=== PATIENT | female | born 1960 | race Caucasian/White ===

== ENCOUNTER 2017-07-31 11:27 | Inpatient (IN) | payer OTHER ==
[~2017-07-31] VITALS: Ht 152.4 cm; Wt 46.7 kg
[2017-07-31 11:36] VITALS: BP 126/71
--- NOTE | 2017-07-31 11:39 | NUR ---
Note undone in EDM - 07/31/17 at 1156 by [facility] PT. CAME IN VIA ALS DUE TO SUICIDAL IDEATION. PER REPORT " SHE WAS SITTING IN THE [employer] AND TOLD THE GLASSBLOWER THAT SHE WANTED TO KILL HERSELF , AND SHE WAS PLANNING TO DO IT BY RUNNING INTO TRAFFIC. THEY CALLED 911". PT. IS AAOX4, RR EVEN AND UNLABORED. PT. DENIES ANY N/V/D. PT. HAS 3/10 PAIN ON R ANKLE DUE TO " I HAD SURGERY ON THAT ANKLE SO ITS BEEN GOING ON FOR A WHILE". PT. STATES " I RAN OUT OF MY [place] A COUPLE OF DAYS AGO AND I FEEL LIKE HURTING MYSELF BY RUNNING INTO TRAFFIC". WHEN ASKING IF SHE WANTED TO HURT OTHERS SHE DENIED. PT. IS IN HOLD BY VIK SONI. HOLD PRECAUTIONS INITIATED, NO LOOSE CABLES OR SHARP OBJECTS PRESENT IN ROOM. WILL CONTINUE TO MONITOR. ER AWARE.
--- NOTE | 2017-07-31 11:39 | NUR ---
PT. CAME IN VIA ALS DUE TO SUICIDAL IDEATION. PER REPORT " SHE WAS SITTING IN THE [place] AND TOLD THE BOX OFFICE MANAGER THAT SHE WANTED TO KILL HERSELF , AND SHE WAS PLANNING TO DO IT BY RUNNING INTO TRAFFIC. THEY CALLED 911". PT. IS AAOX4, RR EVEN AND UNLABORED. PT. DENIES ANY N/V/D. PT. HAS 3/10 PAIN ON R ANKLE DUE TO " I HAD SURGERY ON THAT ANKLE SO ITS BEEN GOING ON FOR A WHILE". PT. STATES " I RAN OUT OF MY [place] A COUPLE OF DAYS AGO AND I FEEL LIKE HURTING MYSELF BY RUNNING INTO TRAFFIC". WHEN ASKING IF SHE WANTED TO HURT OTHERS SHE DENIED. PT. IS IN HOLD BY VIK SONI. HOLD PRECAUTIONS INITIATED, NO LOOSE CABLES OR SHARP OBJECTS PRESENT IN ROOM. WILL CONTINUE TO MONITOR. ER AWARE. PT. CLOSE TO NURSES STATION BED #5; CURTAIN OPEN, SITTER NIMESH AT BEDSIDE.
--- NOTE | 2017-07-31 11:40 | NUR ---
LAB AT BEDSIDE
--- NOTE | 2017-07-31 11:42 | NUR ---
SECURITY CAME TO BEDSIDE AND REMOVED BELONGINGS OF THE PATIENT
[2017-07-31 11:51] LABS: BASOPHILS % (AUTO) 0.3 % (0.0-2.0); EOSINOPHILS % (AUTO) 0.1 % (0.0-4.0); HEMATOCRIT 30.1 % (36-48); HEMOGLOBIN 9.8 g/dL (12.0-16.0); LYMPHOCYTES # (AUTO) 1.1 K/uL (2.5-16.5); MEAN CORPUSCULAR HEMOGLOBIN 29 pg (27-31); MEAN CORPUSCULAR HGB CONC 33 g/dL (33-37); MONOCYTES # (AUTO) 0.3 K/uL (0.8-1.0); MONOCYTES % (AUTO) 3.1 % (1.7-9.3); NEUTROPHILS # (AUTO) 8.2 K/uL (1.8-7.7); NEUTROPHILS % (AUTO) 85.5 % (42.2-75.2); PLATELET COUNT (AUTO) 327 K/uL (140-450); RED BLOOD CELL COUNT(AUTO) 3.39 MIL/uL (4.20-5.40); RED CELL DISTRIBUTION WIDTH 16.7 % (11.6-13.7); WHITE BLOOD COUNT (AUTO) 9.6 K/uL (4.8-10.8)
--- NOTE | 2017-07-31 11:54 | NUR ---
PT. UNABLE TO PROVIDE URINE AT THIS TIME, PROVIDED A CUP OF WATER. YANDEL HURTADO AWARE.
[2017-07-31 12:06] LABS: ALBUMIN 3.1 g/dL (3.4-5.0); ANION GAP 11.4 (8-16); ASPARTATE AMINOTRANSFERASE 12 U/L (15-37); CARBON DIOXIDE 30.5 mmol/L (21-32); CHLORIDE 99 mmol/L (98-107); CREATININE 1.1 mg/dL (0.6-1.3); GFR ARICAN-AMERICAN 65 mL/min (>90); GLUCOSE 202 mg/dL (74-106); POTASSIUM 3.9 mmol/L (3.5-5.1); SODIUM SERUM 137 mmol/L (136-145); TOTAL BILIRUBIN 0.3 mg/dL (0.0-1.0); UREA NITROGEN, BLOOD 14 mg/dL (7-18)
[2017-07-31 12:17] LABS: ACETAMINOPHEN < 0.5 ug/ml (10-30); SALICYLATE < 2.8 mg/dL (2.8-20.0)
[2017-07-31 12:30] LABS: BILIRUBIN,URINE NEGATIVE (NEGATIVE); BLOOD, URINE NEGATIVE (NEGATIVE); LEUKOCYTE ESTERASE ,URINE 3+ (NEGATIVE); NITRITE, URINE POSITIVE (NEGATIVE); PH,URINE 6.5 (5.0-9.0); UGLUCOSE NEGATIVE (NEGATIVE)
[2017-07-31 12:39] LABS: BARBITURATE, URINE NEG. ng/ml (NEG <=200); BENZODIAZEPINE, URINE NEG. ng/mL (NEG <=200); CANNABINOID, URINE NEG. ng/mL (NEG <=50); COCAINE, URINE NEG. ng/mL (NEG <=300); OPIATE, URINE NEG. ng/mL (NEG <=2000); PHENCYCLIDINE SCREEN,URINE NEG. ng/mL (NEG <=25)
[2017-07-31 12:42] LABS: APPEARANCE,URINE HAZY (CLEAR); COLOR,URINE YELLOW (YELLOW)
[2017-07-31 12:43] LABS: RBC,URINE NONE SEEN /HPF (0-5); WBC,URINE 20-60 /HPF (0-5)
--- NOTE | 2017-07-31 12:47 | NUR ---
PT. IN BED RESTING COMFORTABLY , BED IN LOWEST POSITION, SITTER AT BEDSIDE. WILL CONTINUE TO MONITOR.
--- NOTE | 2017-07-31 12:48 | NUR ---
MEDICALLY CLEARED PER DR. ALFORD.
[2017-07-31] MEDS ORDERED: cefTRIAXone 1,000 MG in LIDOCAINE MPF 1% - **ER/OR** 2.1 ML IM ONE (12:50)
--- NOTE | 2017-07-31 13:50 | NUR ---
PT. IN BED RESTING COMFORTABLY, RR EVEN AND UNLABORED, BED IN LOWEST POSITION. SITTER AT BEDSIDE, WILL CONTINUE TO MONITOR.
--- NOTE | 2017-07-31 14:48 | NUR ---
Called [facility] and spoke with Frida. No beds. Called [facility] and spoke with Lillian. No beds. Called [facility] and spoke with Elisha Emanuel. Called [facility] and spoke with Jana. Packet faxed for review. Called [facility] and spoke with Che. Packet faxed for review. Called [facility] and spoke with Sary. Facility at capacity.
--- NOTE | 2017-07-31 15:18 | NUR ---
Pt. in room , being ambulated to commode, steady gait, rr even and unlabored.
[2017-07-31] MEDS ORDERED: ACETAMINOPHEN 325 MG TAB PO PRN (16:20)
--- NOTE | 2017-07-31 16:23 | NUR ---
Patient will be admitted to care of DR. WYNN . Admited to MED SURG . Will go to room 124A. Belongings list completed. Report to ARIANA ARCEO .
--- NOTE | 2017-07-31 16:23 | NUR ---
PATIENT ARRIVED FROM ER VIA WHEELCHAIR AND ABLE TO AMBULATE FROM WHEELCHAIR TO [facility] BED WITH STEADY GAIT. NO DISTRESS NOTED. RESPIRATIONS EVEN, UNLABORED, ON ROOM AIR. AAOX4, CALM, COOPERATIVE, SKIN COLOR APPROPRIATE TO ETHNICITY, WARM TO TOUCH. SKIN IS INTACT. ABDOMEN SOFT, NON-DISTENDED. LUNGS CTA ON ALL LOBES. NO IV SITE IN PLACE. REVIEWED PLAN OF CARE WITH PATIENT. PATIENT VERBALIZED UNDERSTANDING. SAFETY MEASURES IN PLACE, SEIZURE PRECAUTIONS IN PLACE, 1:1 SITTER AT BEDSIDE. WILL CONTINUE TO MONITOR.
[2017-07-31 16:25] VITALS: BP 104/55
[2017-07-31] MEDS: DIVALPROEX 250 MG TABEC PO SCH (17:58)
--- NOTE | 2017-07-31 18:00 | NUR ---
PATIENT SITTING IN BED WITH DINNER TRAY IN FRONT. NO DISTRESS NOTED. DENIES ANY PAIN. SCHEDULED MEDICATIONS DUE GIVEN. SAFETY MEASURES IN PLACE, 1:1 SITTER AT BEDSIDE. WILL CONTINUE TO MONITOR
--- NOTE | 2017-07-31 19:30 | NUR ---
GAVE REPORT TO SOCIAL WORK COORDINATOR NURSE FOR CONTINUITY OF CARE. PATIENT IN STABLE CONDITION.
--- NOTE | 2017-07-31 19:31 | NUR ---
RECEIVED REPORT FROM DAYSSCFT NURSE AT BEDSIDE FOR CONTINUITY OF CARE. PT AAOX3. PT IS ON 5150 HOLD. NO IV LINE NOTED. BED LOWERED CALL LIGHT WITHIN REACH WILL CONTINUE TO MONITOR.
[2017-07-31 20:00] VITALS: BP 99/52
--- NOTE | 2017-08-01 01:27 | NUR ---
PT IS SLEEPING NO SOB NO S/S OF DISTRESS WILL CONTINUE TO MONITOR.
--- NOTE | 2017-08-01 02:09 | NUR ---
D[facility] CALLED TO LET ME KNOW THERE IS NO BED AVAILABLE AT THIS TIME. HE WILL CONTINUE TO SEARCH FOR PLACEMENT.
--- NOTE | 2017-08-01 07:30 | NUR ---
GAVE REPORT TO DAYSHIFT NURSE FOR CONTINUITY OF CARE.
--- NOTE | 2017-08-01 07:31 | NUR ---
REPORT RECEIVED FROM LITHOGRAPH OPERATOR, PT SLEEPING QUIETLY IN NAD, RESP EVEN UNLABORED, SKIN WARM DRY COLOR WNL, PT AROUSES EASILY, DENIES PAIN OR DISCOMFORT, DENIES ANY IMMEDIATE NEEDS, PLAN OF CARE REVIEWED, ALL SAFETY MEASURES IN PLACE, 1:1 SITTER AT BEDSIDE, WILL CONTINUE TO MONITOR.
[2017-08-01 08:00] VITALS: BP 107/48
--- NOTE | 2017-08-01 08:34 | NUR ---
PATIENT HAS BEEN SCREENED AND CATEGORIZED LOW NUTRITION RISK. PATIENT WILL BE SEEN WITHIN 7 DAYS OF ADMISSION. 08/07/[address]
[2017-08-01] MEDS: DIVALPROEX 250 MG TABEC PO SCH ×3 (08:53→16:50)
--- NOTE | 2017-08-01 08:55 | NUR ---
AM MEDS GIVEN, PT MYRTLE PILL WELL, DENIES PAIN OR DISCOMFORT, DENIES ANY IMMEDIATE NEEDS, PT WENT BACK SLEEP IMMEDIATELY, PT REMAINS ON 1;1 WATCH. WILL CONTINUE TO MONITOR.
[2017-08-01] MEDS ORDERED: LEVOFLOXACIN 500 MG TAB PO SCH (11:00)
--- NOTE | 2017-08-01 11:53 | NUR ---
PT SLEEPING QUIETLY IN NAD, RESP EVEN UNLABORED, SKIN WARM DRY, SCHEDULED LEVAQUIN GIVEN, MYRTLE WELL, PT REMAINS ON 1:1 WATCH
--- NOTE | 2017-08-01 13:34 | NUR ---
Clinical review faxed to Lou at [facility] at [phone]
--- NOTE | 2017-08-01 15:24 | NUR ---
[facility] HAS RECEIVED COPY OF NEW HOLD DATED 07/31/17. PLACEMENT PACKETS HAVE BEEN SENT TO [facility], [facility], AND [facility].
[2017-08-01 16:00] VITALS: BP 94/52
--- NOTE | 2017-08-01 16:05 | NUR ---
PT SITTING UP EATING SNACKS, DENIES PAIN OR DISCOMFORT, DENIES ANY IMMEDIATE NEEDS, VITALS STABLE, 1:1 SITTER AT BEDSIDE, WILL CONTINUE TO MONTIOR.
--- NOTE | 2017-08-01 19:27 | NUR ---
REPORT GIVEN TO JOB HAND NURSE, PT IN STABLE CONDITION.
--- NOTE | 2017-08-01 19:28 | NUR ---
RECD. RESTING IN BED, SLEEPING COMFORTABLY BUT EASILY AROUSABLE. RESPIRATION EVEN AND UNLABORED. NO IV LINE. ON 1:1 SITTER. NO APPEARANCE OF PAIN NOTED, 0/10. NO AGITATION. WILL CONTINUE TO MONITOR BEHAVIOR AND ENSURE SAFETY DURING SHIFT.
--- NOTE | 2017-08-01 22:00 | NUR ---
AWAKE IN BED, A/OX4. ADMITTED SHE HAS STILL INTENTION OF ENDING HIS LIFE.
--- NOTE | 2017-08-01 22:30 | NUR ---
REFUSED IV INSERTION.
[2017-08-02] VITALS: BP 94/50
--- NOTE | 2017-08-02 | NUR ---
SLEEPING COMFORTABLY IN BED.
--- NOTE | 2017-08-02 01:00 | NUR ---
Patient's Plan of Care was discussed and reviewed with SCOURING TRAIN OPERATOR CHIEF: GER BAUTISTA
--- NOTE | 2017-08-02 04:00 | NUR ---
STILL SLEEPING COMFORTABLY. 1:1 SITTER NEAR DOOR MONITORING PATIENT.
--- NOTE | 2017-08-02 05:59 | NUR ---
Still no beds available at this time. Will follow up.
--- NOTE | 2017-08-02 06:37 | NUR ---
ABLE TO SLEEP WELL. CONDITION REMAIN STABLE. SAFETY MAINTAINED DURING SHIFT.
--- NOTE | 2017-08-02 07:20 | NUR ---
ENDORSED TO AM NURSE FOR CONTINUITY OF CARE.
--- NOTE | 2017-08-02 07:22 | NUR ---
REPORT RECEIVED FROM MACHINE TRIMMER, PT AWAKE ALERT RESP EVEN UNLABORED ON ROOM AIR, SKIN WARM DRY COLOR WNL, PLAN OF CARE REVIEWED, PT DENIES PAIN OR DISCOMFORT, DENIES ANY IMMEDIATE NEEDS, ALL SAFETY MEASURES IN PLACE, 1:1 WATCH AT BEDSIDE, WILL CONTINUE TO MONITOR.
[2017-08-02 08:00] VITALS: BP 93/40
[2017-08-02] MEDS: DIVALPROEX 250 MG TABEC PO SCH ×3 (08:12→17:35)
[2017-08-02] MEDS: LEVOFLOXACIN 500 MG TAB PO SCH (08:13)
--- NOTE | 2017-08-02 11:13 | NUR ---
PT AMBULATES WITH STEADY GAIT, DENIES PAIN OR DISCOMFORT, PT MOVED TO 109B AT THIS TIME.
--- NOTE | 2017-08-02 12:37 | NUR ---
Followed up with all faxed facilities. No beds available.
--- NOTE | 2017-08-02 12:55 | NUR ---
FAXED CONCURRENT REVIEW TO [facility] [phone] PHONE KWAN [phone]
--- NOTE | 2017-08-02 13:00 | NUR ---
Lamp Cleaner Notes: I attempted to meet with Patient to discuss, confirm and asses patient for needed services upon discharge. Patient was sleepy and stated " I will not talk to anyone only if my boyfriend comes here" turned around and fall asleep again. These telegraphic typewriter installer ended attempt to screen.
[2017-08-02 16:00] VITALS: BP 100/49
--- NOTE | 2017-08-02 16:50 | NUR ---
DR WYNN CALLED TO INFORM THAT PT CAN REMAIN ON LEVAQUIN BECAUSE ECOLI(ESBL) IS SENSITIVE TO LEVAQUIN.
--- NOTE | 2017-08-02 17:35 | NUR ---
1700 MED GIVEN, PT MYRTLE WELL, PT RESTING QUIETLY IN NAD, RESP EVEN UNLABORED, SKIN WARM DRY COLOR WNL, PT DENIES ANY IMMEDIATE NEEDS, WILL CONINUE TO DANYELLE PT ON 1:1 WATCH AT BEDSIDE.
--- NOTE | 2017-08-02 19:30 | NUR ---
REPORT GIVEN TO GUARD MANAGER NURSE, PT IN STABLE CONDITION.
--- NOTE | 2017-08-02 19:35 | NUR ---
RECEIVED PT IN STABLE CONDITION FROM AM NURSE. PT IS AWAKE,ALERT AND ORIENTED. ON MED SURG. WITH NO C/O OF ANY DISCOMFORT NOR PAIN NOTED. NO IV ACCESS. WITH 1;1 SITTER . AMBULATORY TO BATHROOM. STILL AWAITING FOR PSYCHIATRIC FACILITY. BED ON LOW POSITION. WILL CONTINUE TO MONITOR .
--- NOTE | 2017-08-02 21:30 | NUR ---
PT ASLEEP. NO S/S OF ANY DISCOMFORT NOTED.
[2017-08-02 23:57] VITALS: BP 99/45
--- NOTE | 2017-08-03 00:05 | NUR ---
VITAL SIGNS TAKEN. STABLE. WITH NO C/O ANY DISCOMFORT NOTED.
--- NOTE | 2017-08-03 03:30 | NUR ---
MADE ROUNDS. PT IS ASLEEP. NO S/S OF ANY DISCOMFORT NOTED. STILL ON 1;1 SITTER .
--- NOTE | 2017-08-03 06:00 | NUR ---
PT SLEPT WELL DURING THE NIGHT. NO S/S OF ANY SUICIDAL INTEND AT THIS TIME.
--- NOTE | 2017-08-03 07:20 | NUR ---
ENDORSED PT IN STABLE CONDITION TO AM NURSE FOR CONTINUITY OF CARE.
--- NOTE | 2017-08-03 07:25 | NUR ---
RECEIVED PT FROM SQUEAK RATTLE AND LEAK REPAIRER NURSE, CHRISTIANO, PT IS ASLEEP AND LYING ON THE BED AND SITTER ON THE BEDSIDE, AND SAFETY PRECAUTION ENFORCE. RESPIRATIONS EVEN AND NO SIGN OF DISTRESS NOTED. WILL CONTINUE TO MONITOR.
--- NOTE | 2017-08-03 07:26 | NUR ---
Report received from framing and hanging. will continue to look for placement throughout shift. will update unit once new info has been received.
--- NOTE | 2017-08-03 07:55 | NUR ---
PT IS AWAKE AND SEATED ON THE BED, EATING HER BREAKFAST, VITAL SIGNS TAKEN AND IS STABLE. NO SIGN OF DISTRESS NOTED ON THE PT. 1: 1 AT THE BEDSIDE. WILL CONTINUE TO MONITOR.
[2017-08-03 08:00] VITALS: BP 103/49
[2017-08-03] MEDS: DIVALPROEX 250 MG TABEC PO SCH ×3 (09:00→17:04)
--- NOTE | 2017-08-03 10:37 | NUR ---
FAXED CONCURRENT REVIEW TO [facility] [phone] PHONE KWAN [phone].
--- NOTE | 2017-08-03 12:00 | NUR ---
INFORMED PHARMACY OF A MISSED DOSE. PHARMACY AWARE.
--- NOTE | 2017-08-03 12:15 | NUR ---
PT IS AWAKE AND EATING HER LUNCH, WITH SITTER ON THE BEDSIDE. SCHEDULED MEDICATION GIVEN AND PT TOLERATED IT. NO SIGN OF DISTRESS NOTED. WILL MONITOR.
[2017-08-03] MEDS: LEVOFLOXACIN 500 MG TAB PO SCH (12:22)
--- NOTE | 2017-08-03 13:30 | NUR ---
[facility] CALLED AND INFORMING THAT THE 5150 OF THE PT . ACKNOWLEDGED.
--- NOTE | 2017-08-03 13:38 | NUR ---
[facility] spoke to the RN taking care of patient and we are aware patients 5150 has today. waiting for callback for next course of action for patient.
[2017-08-03 16:00] VITALS: BP 103/50
--- NOTE | 2017-08-03 18:30 | NUR ---
DR. DIAZ SAW AND ASSESSED THE PT. PT STILL MEETS 5150 CRITERIA. WAITING FOR PLACEMENT FOR A PSYCH FACILITY.
--- NOTE | 2017-08-03 19:40 | NUR ---
ENDORSED PT TO CROSS CUT SAW OPERATOR NURSE, GER, PT IS AWAKE AND IS STABLE AT THIS TIME.
--- NOTE | 2017-08-03 19:45 | NUR ---
RECD. RESTING IN BED, AWAKE, A/OX4. RESPIRATION EVEN AND UNLABORED. NO IV LINE, DOES NOT WANT IV INSERTION. STATED SHE IS WAITING FOR HER 37 YEARS OLD BOYFRIEND TO COME AND TAKE HER HOME, ADMITTED SHE IS HOMELESS BUT SHE HAVE A CAR. PLAN OF CARE FOR THE SHIFT DISCUSSED. VERBALIZED UNDERSTANDING. DENIES PAIN 0/10. DR. PEPE IS HERE TO EVALUATE PATIENT. WILL WAIT FOR HIS RECOMMENDATION.
--- NOTE | 2017-08-03 19:46 | NUR ---
Patient's Plan of Care was discussed and reviewed with ELINOR: GER
--- NOTE | 2017-08-03 19:50 | NUR ---
PATIENT STILL MEETS CRITERIA FOR 5150, WILL CONTINUE TO MONITOR PATIENT BEING THE NURSE, 1:1 SITTER FOR THE SHIFT.
--- NOTE | 2017-08-03 20:30 | NUR ---
ENCOURAGED TO DRINK MORE WATER, EXPLAINED IMPORTANT FOR HER URINARY TRACT INFECTION. JUST NODS HEAD.
--- NOTE | 2017-08-03 21:00 | NUR ---
AMBULATED TO TO VOID, BACK TO BED AFTER VOIDING.
--- NOTE | 2017-08-03 22:00 | NUR ---
SLEEPING COMFORTABLY IN BED.
--- NOTE | 2017-08-03 22:40 | NUR ---
WOKE UP DUE TO COUGHING. WENT BACK TO SLEEP AFTER DRINKING WATER.
--- NOTE | 2017-08-03 23:45 | NUR ---
AMBULATED TO BR. HAD BM. BACK TO BED.
[2017-08-04] VITALS: BP 97/46
--- NOTE | 2017-08-04 00:15 | NUR ---
WENT BACK TO SLEEP.
--- NOTE | 2017-08-04 02:15 | NUR ---
SLEEPING COMFORTABLY IN BED.
--- NOTE | 2017-08-04 06:00 | NUR ---
STILL SLEEPING, CONDITION REMAIN STABLE. WILL ENDORSE TO AM NURSE FOR CONTINUITY OF CARE.
--- NOTE | 2017-08-04 07:13 | NUR ---
RECEIVED BEDSIDE REPORT FROM TRANSACTIONAL ATTORNEY NURSE. PATIENT IS AWAKE, ALERT AND ORIENTEDX4. NO SIGNS OF DISTRESS ON ROOM AIR. PATIENT ON CONTACT PRECAUTIONS D/T POSITIVE E. COLI IN URINE. PATIENT HAS SEIZURE PRECAUTIONS IN PLACE. SHE STATES THAT AFTER BREAKFAST SHE WANTS TO TALK TO HER BOYFRIEND. SHE TALKED TO HER BOYFRIEND YESTERDAY AND SHE SAID HE IS SUPPOSE TO VISIT IF HE FINDS A RIDE. HER BOYFRIEND IS ALSO HOMELESS. PER TRANSACTIONAL ATTORNEY IF HER BOYFRIEND DOES NOT COME SHE WILL KILL HERSELF. BED IN LOW POSITION. WILL CONTINUE TO MONITOR PATIENT, 1:1 SITTER.
[2017-08-04 08:00] VITALS: BP 102/49
--- NOTE | 2017-08-04 08:06 | NUR ---
[facility] morning shift received report will continue to look for placement throughout shift.
[2017-08-04] MEDS: LEVOFLOXACIN 500 MG TAB PO SCH (09:01)
[2017-08-04] MEDS: DIVALPROEX 250 MG TABEC PO SCH ×3 (09:01→17:13)
--- NOTE | 2017-08-04 09:04 | NUR ---
ADMINISTERED MEDS. PATIENT TOLERATED WELL. NO COMPLAINTS AT THIS TIME. LOWERED HEAD OF BED FOR COMFORT. BED IN LOW POSITION. 1:1 SITTER AT BEDSIDE, WILL CONTINUE TO MONITOR THE PATIENT.
--- NOTE | 2017-08-04 10:30 | NUR ---
PATIENT IS SLEEPING. NO SIGNS OF DISTRESS ON ROOM AIR. BED IN LOW POSITION. WILL CONTINUE TO MONITOR THE PATIENT. 1:1 SITTER
--- NOTE | 2017-08-04 12:24 | NUR ---
PUT HEAD OF BED UP SO PATIENT CAN EAT AT A COMFORTABLE POSITION. PATIENT IS EATING. NO SIGNS OF DISTRESS. BED IN LOW POSITION. WILL CONTINUE TO MONITOR THE PATIENT. 1:1 SITTER
--- NOTE | 2017-08-04 13:48 | NUR ---
ADMINISTERED MED. PATIENT TOLERATED WELL. WILL CONTINUE TO MONITOR THE PATIENT. 1:1 SITTER
--- NOTE | 2017-08-04 13:54 | NUR ---
No bed vacancies at [facility], [facility], [facility], [facility], [facility], [facility], [facility], [facility], [facility], and [facility].
--- NOTE | 2017-08-04 14:45 | NUR ---
PATIENT ATTEMPTED TO CALL HER BOYFRIEND. SOMEONE ANSWERED AND TOLD HER SHE IS CALLING THE WRONG NUMBER. PATIENT WAS A BIT UPSET. SHE CALLED AGAIN AND LEFT A MESSAGE TO HER BOYFRIEND TO COME PICK HER UP. PATIENT IN BED SITTING QUIETLY. NO OTHER COMPLAINTS AT THIS TIME. BED IN LOW POSITION. 1:1 SITTER. WILL CONTINUE TO MONITOR THE PATIENT.
--- NOTE | 2017-08-04 15:34 | NUR ---
PATIENT IS EATING AN APPLE WITH A SPOON. NO COMPLAINTS AT THIS TIME. PATIENT IS COOPERATIVE AND ALERT. WILL CONTINUE TO MONITOR THE PATIENT. 1:1 SITTER.
--- NOTE | 2017-08-04 15:50 | NUR ---
PATIENT ATTEMPTED TO CALL BOYFRIEND AGAIN. NO ANSWER. SHE WANTS TO TRY AGAIN LATER BEFORE DINNER. SHE STATES SEEING HER BOYFRIEND WILL MAKE HER FEEL BETTER. WILL CONTINUE TO MONITOR THE PATIENT. 1:1 SITTER
[2017-08-04 16:00] VITALS: BP 116/58
--- NOTE | 2017-08-04 17:13 | NUR ---
ADMINISTERED MEDS. PATIENT TOLERATED WELL. BED IN LOW POSITION. 1:1 SITTER. WILL CONTINUE TO MONITOR
--- NOTE | 2017-08-04 18:24 | NUR ---
PATIENT IS EATING. NO SIGNS OF DISTRESS ON ROOM AIR. BED IN LOW POSITION. 1:1 SITTER. WILL CONTINUE TO MONITOR THE PATIENT.
--- NOTE | 2017-08-04 18:31 | NUR ---
PATIENT TRIED CALLING BOYFRIEND AGAIN. NO ANSWER. SHE LEFT A MESSAGE FOR HIM TO COME PICK HER UP
--- NOTE | 2017-08-04 19:02 | NUR ---
GAVE BEDSIDE REPORT TO FAMILY AND CONSUMER SCIENCE PROFESSOR NURSE. PATIENT IS IN STABLE CONDITION. 1:1 SITTER AVAILABLE
--- NOTE | 2017-08-04 19:03 | NUR ---
RECEIVED BEDSIDE REPORT FROM DAY SHIFT NURSE BERNARDO RN, PT STABLE, NO DISTRESS NOTED, PT HAS NO IV ACCESS, REFUSED IV INSERTION, PT ON ROOM AIR, NO SOB, 1:1 SITTER AT BEDSIDE, INITIAL ASSESSMENT DONE, ALL SAFETY PRECAUTION MET, WILL CONTINUE TO MONITOR.
--- NOTE | 2017-08-04 21:00 | NUR ---
CHECKED ON PT, PT RESTING IN BED, NO DISTRESS NOTED, CALL LIGHT WITHIN REACH, WILL CONTINUE TO MONITOR.
--- NOTE | 2017-08-04 23:15 | NUR ---
CHECKED ON PT, PT SLEEPING, NO DISTRESS NOTED, V/S TAKEN, WNL, 1:1 SITTER AT BEDSIDE, WILL CONTINUE TO MONITOR.
[2017-08-05] VITALS: BP 108/48
--- NOTE | 2017-08-05 01:00 | NUR ---
ENDORSED PT TO NURSE ABHI LANE, FOR CONTINUOUS OF CARE, PT SLEEPING, 1:1 SITTER AT BEDSIDE, NO DISTRESS NOTED.WILL CONTINUE TO MONITOR.
--- NOTE | 2017-08-05 07:10 | NUR ---
CHANGE OF SHIFT REPORT GIVEN TO MARIA ANTONIA DAY SHIFT NURSE AT BEDSIDE PT IN STABLE CONDITION.
--- NOTE | 2017-08-05 07:11 | NUR ---
RECEIVED BEDSIDE REPORT FROM PROGRESSIVE CARE NURSE NURSE. PATIENT IS AWAKE. ALERT AND ORIENTEDX4. NO SIGNS OF DISTRESS ON ROOM AIR. ROOM CHECKED AND CLEARED, ROOM IS CLEARED FROM HARMFUL ENVIRONMENT. 1:1 SITTER AT BEDSIDE. PATIENT STATES SHE WANTS TO TRY AND CALL HER BOYFRIEND AGAIN. BOYFRIEND DID NOT ANSWER. SHE LEFT A VOICEMAIL. SEIZURE PRECAUTIONS IN PLACE. CONTACT PRECAUTIONS FOR E.COLI IN URINE. WILL CONTINUE TO MONITOR THE PATIENT.
[2017-08-05 08:00] VITALS: BP 100/47
[2017-08-05] MEDS: DIVALPROEX 250 MG TABEC PO SCH ×3 (09:30→16:52)
[2017-08-05] MEDS: LEVOFLOXACIN 500 MG TAB PO SCH (09:30)
--- NOTE | 2017-08-05 09:31 | NUR ---
ADMINISTERED MEDS. PATIENT TOLERATED WELL. WILL CONTINUE TO MONITOR THE PATIENT. 1:1 SITTER AT BEDSIDE.
--- NOTE | 2017-08-05 11:13 | NUR ---
PATIENT HAS NO SIGNS OF DISTRESS. EXPLAINED THE NEED FOR A URINE SAMPLE. SHE VERBALIZED UNDERSTANDING. 1:1 SITTER WILL LET ME KNOW WHEN PATIENT LEAVES ME URINE. WILL CONTINUE TO MONITOR
--- NOTE | 2017-08-05 13:03 | NUR ---
ADMINISTERED MEDS. PATIENT TOLERATED WELL. WILL CONTINUE TO MONITOR THE PATIENT. 1:1 SITTER AT BEDSIDE,.
[2017-08-05 13:53] LABS: APPEARANCE,URINE CLEAR (CLEAR); BILIRUBIN,URINE NEGATIVE (NEGATIVE); BLOOD, URINE NEGATIVE (NEGATIVE); LEUKOCYTE ESTERASE ,URINE NEGATIVE (NEGATIVE); NITRITE, URINE NEGATIVE (NEGATIVE); UGLUCOSE NEGATIVE (NEGATIVE)
[2017-08-05 14:05] LABS: COLOR,URINE STRAW (YELLOW)
--- NOTE | 2017-08-05 15:48 | NUR ---
PATIENT SITTING IN BED EATING ICE CHIPS. NO COMPLAINTS AT THIS TIME. NO SIGNS OF DISTRESS. WILL CONTINUE TO MONITOR THE PATIENT. BED IN LOW POSITION. 1:1 SITTER AT BEDSIDE.
[2017-08-05 16:00] VITALS: BP 110/50
--- NOTE | 2017-08-05 16:54 | NUR ---
ADMINISTERED MEDS. PATIENT TOLERATED WELL. BED IN LOW POSITION. 1:1 SITTER AT BEDSIDE. WILL CONTINUE TO MONITOR THE PATIENT.
--- NOTE | 2017-08-05 19:20 | NUR ---
RECEIVED REPORT FROM MARIA ANTONIA LANE DAY SHIFT NURSE AT BEDSIDE , PT IN STABLE CONDITION. PT LYING IN LOW BED AOX 4 WITH SIDE RAILS UP X 2 AND CALL LIANG IN REACH. PT HAD NO C/O VOICED AT THIS TIME.
--- NOTE | 2017-08-05 19:20 | NUR ---
GAVE BEDSIDE REPORT TO COURT INTERPRETER NURSE. PATIENT IS IN STABLE CONDITION.
--- NOTE | 2017-08-05 19:45 | NUR ---
PT SITTING UP IN BED WITH ICE CHIPS AND JUICE. V/S TAKEN AND ARE FOLLOWS :T 97.8 P 63 R 20 B/P 112/51 02 99 WITH R/A NO S/S OF PAIN OR DISTRESS NOTED.
--- NOTE | 2017-08-05 21:15 | NUR ---
PT BOYFRIEND, RAI CALLED REGARDING PT CONDITION AND WANTED HER TO BE RELEASED TO HIM. PRIMARY NURSE INFORMED PT BOYFRIEND THAT A DOCTOR'S ORDER NEEDS TO BE OBTAINED IN ORDER FOR HER TO BE DISCHARGED. PT BOYFRIEND RAI VERBALIZED UNDERSTANDING. RAI SAID THAT HE WAS VERY CLOSE TO FACILITY AND ASKED FOR DIRECTIONS.
--- NOTE | 2017-08-05 21:45 | NUR ---
FRONT LOBBY CALLED REGARDING RAI WHO APPARENTLY CAME TO VISIT RESIDENT BY BICYCLE AND WANTED TO SEE PT. RAI VISITED PT IN HER ROOM FOR 1/2 HOUR AND WAS INFORMED THAT THE PSYCH DOCTOR, NOT PRIMARY DOCTOR, WAS THE ONE TO RELEASE PT FROM 5150 HOLD. RAI AND PT INFORMED THAT [facility] DOCTOR WILL BE HERE TOMORROW TO DECIDE IF PT SHOULD REMAIN ON 5150 HOLD. BOTH PT AND RAI THE VISITING BOYFRIEND VERBALIZED UNDERSTANDING. SECURITY WAS HERE TO ESCORT RAI OUTSIDE WHO LEFT WITHOUT AN ISSUE.
--- NOTE | 2017-08-05 22:30 | NUR ---
PT ASLEEP IN BED NO S/S OF DISTRESS NOTED. SITTER AT BEDSIDE. BED LOW AND CALL LIANG IN REACH.
[2017-08-06] VITALS: BP 98/42
--- NOTE | 2017-08-06 02:58 | NUR ---
[facility] IS AWARE OF PATIENT. WE WILL CONTINUE TO SEARCH FOR PLACEMENT. THERE ARE CURRENTLY NO BEDS AVAILABLE AT THIS TIME.
--- NOTE | 2017-08-06 03:21 | NUR ---
PT AWAKE WENT TO REST ROOM AND REQUESTED SNACK OF JUICE AND PUDDING, WHICH WAS GRANTED
--- NOTE | 2017-08-06 07:10 | NUR ---
transfer of care report given at bedside to ARIANA Hernandez dayshift nurse pt in stable condition
--- NOTE | 2017-08-06 07:30 | NUR ---
PATIENT WAS SLEEPING COMFORTABLY, EASILY AROUSABLE BY NAME. RESPIRATION EVEN, UNLABOR ON ROOM AIR. SKIN DRY AND WARM. LUNGS SOUND CLEAR THROUGHOUT. BOWEL SOUND ACTIVE. REGULAR CARDIAC RHYTHM. DENIED SUICIDAL IDEATION, AND HALLUCINATION. NO DISTRESS NOTED AT THIS TIME. PLAN OF CARE WAS DISCUSSED WITH PATIENT. SAFETY MEASURE IS APPLIED WITH 1:1 SITTER.
[2017-08-06 08:00] VITALS: BP 99/49
[2017-08-06] MEDS: DIVALPROEX 250 MG TABEC PO SCH ×3 (08:54→16:07)
--- NOTE | 2017-08-06 10:47 | NUR ---
Called [facility] and spoke with Thiago. No beds. Called [facility] and spoke Domi. No beds. Called [facility] and spoke with Singh GAVIN. No beds. Called [facility] and spoke with Di. No beds, possible discharges later today. Called [facility] and spoke with Lissa. No beds. Called [facility] and spoke with Che. No beds. Called [facility] and spoke with Sary. No beds.
--- NOTE | 2017-08-06 10:55 | NUR ---
PATIENT IS AWAKE, ALERT. RESPIRATION EVEN, UNLABOR ON ROOM AIR. NO DISTRESS NOTED AT THIS TIME. FAMILY AT BEDSIDE. 1:1 SITTER ENSURED
--- NOTE | 2017-08-06 11:57 | NUR ---
ENDORSEMENT GIVEN TO CHERELLE LANE FOR CONTINUITY OF CARE. PATIENT IS STABLE AT THIS TIME
--- NOTE | 2017-08-06 12:15 | NUR ---
RECEIVED PT, INTRODUCED MYSELF TO PT, REORIENTED PT, PT'S BOYFRIEND AT BEDSIDE. PT STATED NO SUICIDAL PLAN AT THIS MOMENT.
--- NOTE | 2017-08-06 12:44 | NUR ---
CHART REVIEWED. GAVE VERBAL REPORT TO KWAN FROM [facility]. FAXED THE PROGESS NOTES FROM 08/04, 08/05 AND 08/06 TO HER AT [phone], PHONE [phone].
[2017-08-06 16:00] VITALS: BP 101/48
--- NOTE | 2017-08-06 18:29 | NUR ---
PT SITTING IN BED, BOYFRIEND AT BEDSIDE. EXPLAINED TO PT WE ARE STILL WAITING FOR . PT VERBALIZED UNDERSTANDING.
--- NOTE | 2017-08-06 18:48 | NUR ---
[facility] IS ASSISTING WITH PLACEMENT. WE WILL UPDATE SHORTLY IF BED BECOMES AVAILABLE OR IF ADDITIONAL PACKETS SENT TO FACILITIES.
--- NOTE | 2017-08-06 19:15 | NUR ---
RECD. RESTING IN BED, AWAKE, A/OX4. RESPIRATION EVEN AND UNLABORED. AMBULATORY TO THE BR. BOYFRIEND SITTING AT THE BEDSIDE. STILL ON 1:1 SITTER AT THE DOOR MONITORING PATIENT. WHEN ASKED IF SHE STILL HAS INTENTION OF HARMING HERSELF, VERBALIZED NONE. BOYFRIEND AT THE BEDSIDE STATED BECAUSE I AM HERE. DENIES PAIN 0/10.
--- NOTE | 2017-08-06 20:00 | NUR ---
INFORMED PATIENT AND BOYFRIEND THAT VISITING TIME IS ALREADY OVER AND VISITOR MUST LEAVE AND JUST COMEBACK TOMORROW. BOYFRIEND GOT UPSET STATED HE HAS BEEN WAITING SINCE MORNING FOR PSYCHOLOGIST TO COME SO HE CAN TAKE PATIENT HOME. CHARGE NURSE BHARGAV EXPLAINED THAT SINCE PATIENT IS [id number] SHE NEEDS TO BE RELEASED BY MD. ADVISED BF TO COMEBACK IN THE MORNING.
--- NOTE | 2017-08-06 20:05 | NUR ---
PATIENT BOYFRIEND LEAVES MURMURING. PATIENT STATED HER BOYFRIEND HAVE SOME MENTAL ABNORMALITY. PLAN OF CARE DISCUSSED. VERBALIZED UNDERSTANDING.
--- NOTE | 2017-08-06 23:05 | NUR ---
WOKE UP, SNACK OF PUDDING AND CRACKERS GIVEN REQUESTED.
[2017-08-07] VITALS: BP 104/56
--- NOTE | 2017-08-07 | NUR ---
SLEEPING COMFORTABLY IN BED.
--- NOTE | 2017-08-07 03:54 | NUR ---
STILL SLEEPING COMFORTABLY IN BED, SITTER CONTINUOUSLY MONITORING PATIENT. CONDITION REMAIN STABLE.
--- NOTE | 2017-08-07 07:10 | NUR ---
RECEIVED PATIENT REPORT AT BEDSIDE. PATIENT ASLEEP BUT AROUSABLE. PATIENT IS CALM AND COOPERATIVE. NO S/S OF DISTRESS. PATIENT WITH 1:1 SITTER. WILL CONTINUE TO MONITOR
--- NOTE | 2017-08-07 07:25 | NUR ---
ENDORSED TO AM NURSE FOR CONTINUITY OF CARE.
[2017-08-07 08:00] VITALS: BP 99/42
[2017-08-07] MEDS: DIVALPROEX 250 MG TABEC PO SCH ×3 (09:14→16:44)
[2017-08-07] MEDS ORDERED: DIVA250E1 PO (10:27)
--- NOTE | 2017-08-07 11:00 | NUR ---
PATIENT AWAKE IN BED. NO S/S OF DISTRESS NOTED. BOYFRIEND AT BEDSIDE. PATIENT WITH 1:1 SITTER.
--- NOTE | 2017-08-07 15:00 | NUR ---
PATIENT AWAKE IN BED. NO S/S OF DISTRESS NOTED. BOYFRIEND AT BEDSIDE. PATIENT WITH 1:1 SITTER.
[2017-08-07 16:00] VITALS: BP 99/54
--- NOTE | 2017-08-07 16:25 | NUR ---
PATIENT SEEN BY DR YOO
--- NOTE | 2017-08-07 16:40 | NUR ---
08/07/17 RD INITIAL ASSESSMENT COMPLETED PLEASE REFER TO NUTRITION ASSESSMENT UNDER CARE ACTIVITY FOR ESTIMATED NUTRITIONAL NEEDS. 1. CONTINUE REGULAR DIET TOLERATED 2. PROVIDE LIST OF FOOD DISTRIBUTION CENTERS IN THE AREA 3. RD TO FOLLOW-UP 5-7 DAYS, LOW RISK BORIS FERREIRA, RD
--- NOTE | 2017-08-07 18:40 | NUR ---
PATIENT DISCHARGED. DISCHARGE INSTRUCTIONS AND DISCHARGE PRESCRIPTIONS GIVEN. PATIENT VERBALIZED UNDERSTANDING. HOMELESS RESOURCE AND BUS PASS PROVIDED. PATIENT LEFT WITH ALL HER BELONGINGS AND DISCHARGE PAPERS. PATIENT LEFT IN STABLE CONDITION
== END 2017-08-07 18:40 | disposition home or self-care (01) | DRG 720 ==
LOC: MED 11:27 → MTU 16:03
PROVIDERS: ADMIT Hospitalist; ATTEND Hospitalist
DX: A41.9 Sepsis, unspecified organism (principal); R45.851 Suicidal ideations; F31.4 Bipolar disorder, current episode depressed, severe, without psychotic features; F17.200 Nicotine dependence, unspecified, uncomplicated; B96.20 Unspecified Escherichia coli [E. coli] as the cause of diseases classified elsewhere; Z16.12 Extended spectrum beta lactamase (ESBL) resistance; N39.0 Urinary tract infection, site not specified; E44.1 Mild protein-calorie malnutrition; Z88.2 Allergy status to sulfonamides; Z88.8 Allergy status to other drugs, medicaments and biological substances; Z90.49 Acquired absence of other specified parts of digestive tract; Z90.710 Acquired absence of both cervix and uterus; Z59.0 Homelessness
CPT/HCPCS: 36415; 80053; 80305; 81001; 81003; 84484; 85025; 87081; 87086; 87186; 96372; 99285; G0480; G0482; J0696; J2001